=== PATIENT | male | born 1980 | race Caucasian/White ===

== ENCOUNTER → 2019-08-04 | Outpatient (CLI) | payer SELFPAY | LOC: LAB 17:28 | DX: N50.89 Other specified disorders of the male genital organs (principal); Z91.89 Other specified personal risk factors, not elsewhere classified ==

== ENCOUNTER 2020-09-21 00:12 | Emergency (ER) | payer BC ==
[~2020-09-21] VITALS: Ht 162.6 cm; Wt 59.0 kg
[2020-09-21] MEDS ORDERED: NORCO 325 MG-51 TA1 PO (01:00)
[2020-09-21] MEDS ORDERED: PENICILLIN-VK500 M1 PO (01:00)
[2020-09-21 01:17] VITALS: BP 114/68
== END 2020-09-21 01:16 | disposition home or self-care (01) ==
LOC: ED 00:12
DX: K08.89 Other specified disorders of teeth and supporting structures (principal); K05.10 Chronic gingivitis, plaque induced; Z90.49 Acquired absence of other specified parts of digestive tract

== ENCOUNTER 2021-06-08 17:45 | Emergency (ER) | payer SELFPAY ==
[~2021-06-08] VITALS: Ht 162.6 cm; Wt 59.1 kg
[~2021-06-08 17:45] MED LIST: NORCO 325 MG-51 TA1 PO; PENICILLIN-VK500 M1 PO
[2021-06-08 19:18] LABS: BASO # 0.01 (0.02-0.10); EOS # 0.04 (0.04-0.40); EOS % 0.7 % (0.0-4.0); HEMATOCRIT 42.6 % (42.0-52.0); HEMOGLOBIN 14.5 g/dL (13.5-18.0); LYMPH# 2.02 (1.50-4.00); MEAN CELL VOLUME 92 fl (78-100); MEAN CORPUSCULAR HEMOGLOBIN 31 pg (27-31); MEAN CORPUSCULAR HGB CONC 34 g/dL (33-37); MEAN PLATELET VOLUME 12.8 fl (7.4-10.4); MONO # 0.47 (0.20-0.80); NEU # 2.84 (1.40-6.50); PLATELET COUNT 181 K/mm3 (130-400); RED BLOOD COUNT 4.63 M/mm3 (4.20-5.60); RED CELL DISTRIBUTION WIDTH 13.2 % (11.5-14.5); WHITE BLOOD COUNT 5.4 K/mm3 (4.8-10.8)
[2021-06-08 19:23] LABS: ALBUMIN 4.4 g/dL (3.5-5.0); POTASSIUM 3.8 mmol/L (3.5-5.1)
[2021-06-08 19:25] LABS: CALCIUM 9.2 mg/dL (8.3-10.5)
[2021-06-08 19:26] LABS: TOTAL PROTEIN 7.5 g/dL (6.4-8.3)
[2021-06-08 19:28] LABS: TOTAL BILIRUBIN 0.4 mg/dL (0.2-1.2)
[2021-06-08] MEDS ORDERED: ZOFRAN ODT4 MG PO (19:40)
[2021-06-08 20:00] VITALS: BP 124/83
== END 2021-06-08 20:00 | disposition home or self-care (01) ==
LOC: ED
PROVIDERS: Family Medicine
DX: U07.1 COVID-19 (principal); K08.89 Other specified disorders of teeth and supporting structures; F17.210 Nicotine dependence, cigarettes, uncomplicated

== ENCOUNTER 2024-03-04 12:38 | Emergency (ER) | payer SELFPAY ==
[~2024-03-04] VITALS: Ht 162.6 cm; Wt 63.6 kg
[~2024-03-04 12:38] MED LIST changes: +CLINDAMYCIN 300MG PO; +ZOFRAN ODT4 MG PO
[2024-03-04 12:49] VITALS: BP 141/85
[2024-03-04] MEDS ORDERED: NORCO 325 MG-51 TA1 PO (13:13)
[2024-03-04] MEDS ORDERED: CEPHALEXIN500 M1 PO (13:13)
[2024-03-04] MEDS ORDERED: Acetaminophen 325 MG TAB PO ONE (13:15)
[2024-03-04] MEDS ORDERED: HYDROcodone/Acetaminophen 7.5-325 MG TAB PO ONE (13:15)
[2024-03-04] MEDS ORDERED: Cephalexin 250 MG CAP PO ONE (13:15)
== END 2024-03-04 13:30 | disposition home or self-care (01) ==
LOC: ED 12:38
DX: S02.5XXA Fracture of tooth (traumatic), initial encounter for closed fracture (principal); K02.9 Dental caries, unspecified; F17.210 Nicotine dependence, cigarettes, uncomplicated; Z88.0 Allergy status to penicillin; X58.XXXA Exposure to other specified factors, initial encounter

== ENCOUNTER → 2024-03-13 | Outpatient (CLI) | payer SELFPAY ==
[~2024-03-13] MED LIST changes: +CEPHALEXIN500 M1 PO
== END ==
LOC: LAB 15:36
DX: Z13.220 Encounter for screening for lipoid disorders (principal)